=== PATIENT | male | born 1960 | race African-American/Black ===

== ENCOUNTER 2018-04-25 16:28 | Emergency (ER) | payer SELFPAY ==
[~2018-04-25] VITALS: Ht 180.3 cm; Wt 80.0 kg
[2018-04-25 16:30] VITALS: BP 144/96
== END 2018-04-25 20:00 | disposition left against medical advice (07) ==
LOC: ER 19:06
DX: Z53.21 Procedure and treatment not carried out due to patient leaving prior to being seen by health care provider (principal)